=== PATIENT | male | born 1995 | race Caucasian/White ===

== ENCOUNTER 2021-04-03 21:42 | Emergency (ER) | payer OTHER ==
[2021-04-03] MEDS ORDERED: ZOFRAN4 M1 PO (23:42)
== END 2021-04-04 00:10 | disposition home or self-care (01) ==
LOC: FER 21:42
DX: S09.90XA Unspecified injury of head, initial encounter (principal); F17.290 Nicotine dependence, other tobacco product, uncomplicated; Z87.828 Personal history of other (healed) physical injury and trauma; W51.XXXA Accidental striking against or bumped into by another person, initial encounter; Y93.67 Activity, basketball; Y92.838 Other recreation area as the place of occurrence of the external cause
CPT/HCPCS: 70450